=== PATIENT | female | born 1995 | race Caucasian/White ===

== ENCOUNTER 2016-12-24 12:51 | Emergency (ER) | payer OTHER ==
[2016-12-24 13:04] VITALS: RESP 16; TEMP 98.2
[2016-12-24] MEDS ORDERED: LIDOCAINE 2% VISCOUS 15 ML UDCUP PO ONE (13:13)
[2016-12-24] MEDS ORDERED: MAG HYDROX/AL HYDROX/SIMETH 30 ML UDCUP PO ONE (13:13)
[2016-12-24] MEDS ORDERED: FAMOTIDINE 20 MG in NS 100 ML IV ONE (13:13)
--- NOTE | 2016-12-24 13:18 | EDPHY ---
H & P Stated Complaint: n/v and epigastric pain since saturday, Time Seen by Provider: 12/24/16 13:02 HPI/ROS: Chief Complaint: Abdominal pain HPI: 21-year-old female with a past medical history of a hiatal hernia had some vomiting on Saturday. Since that time she has been having epigastric abdominal pain consistent with prior hiatal hernia pain. At worst is 6/10. It is worse when she lays down and worse with eating. Some nausea. No further vomiting. No fevers or chills. No urinary symptoms. No diarrhea. No hematemesis or melena. Last menstrual period was 3 weeks ago. She has never been . Has never had a sexually transmitted disease. ROS: 10 point Review of Systems is negative except as noted in the HPI. PMH: Hiatal hernia, asthma Medications: Singular Allergies: No known drug allergies Social History: No smoking, occasional alcohol, no recreational drug use Family History: Mother has hypertension, father had skin cancer Physical Exam: Gen: Awake, Alert, No Distress HEENT: Nose: no rhinorrhea Eyes: PERRLA, EOMI Mouth: Moist mucosa Neck: Supple, no JVD Chest: nontender, lungs clear to auscultation Heart: S1, S2 normal, no murmur Abd: Soft, mild epigastric tenderness, no Carpenter sign, no lower abdominal tenderness, no guarding Back: no CVA tenderness, no midline tenderness Ext: no edema, non-tender Skin: no rash Neuro: CN II-XII intact, Sensation grossly intact, Strength 5/5 in bilateral upper and lower extremities - Personal History LMP (Females 10-55): IUD In Place Current Tetanus Diphtheria and Acellular Pertussis (TDAP): Yes - Medical/Surgical History Hx Asthma: No Hx Chronic Respiratory Disease: No Hx Diabetes: No Hx Cardiac Disease: No Hx Renal Disease: No Hx Cirrhosis: No Hx Alcoholism: No Hx HIV/AIDS: No Hx Splenectomy or Spleen Trauma: No Other PMH: Hiatal Hernia ? Seasonal allergies - Social History Smoking Status: Never smoked Constitutional: Initial Vital Signs Temperature (C) 36.8 C 12/24/16 13:02 Heart Rate 93 12/24/16 13:02 Respiratory Rate 16 12/24/16 13:02 Blood Pressure 121/71 H 12/24/16 13:02 O2 Sat (%) 98 12/24/16 13:02 O2 Delivery Mode Room Air Allergies/Adverse Reactions: No Known Allergies Allergy (Verified 12/24/16 13:03) Home Medications: Medication Instructions Recorded Andrae 08/09/14 Medical Decision Making ED Course/Re-evaluation: [age] year old female with epigastric pain, mild tenderness, symptoms consistent with hiatal hernia and gastrointestinal reflux disease. She has a soft benign abdomen. Certainly not surgical. Will obtain laboratory evaluations including LFTs and lipase and CBC. Will also check a test. Will treat IV H2 blockers and oral antacids and reassess. Patient is improved after antacid medications. Laboratory investigations are entirely normal. Abdomen is soft and benign. Will discharge with continued over -the-counter antacid medications. Follow up with primary care doctor in 2-3 days. If symptoms continue she may require an ultrasound but she has not have any particular right upper quadrant tenderness at this time is normal liver function. - Data Points Laboratory Results: Laboratory Results 12/24/16 13:24 12/24/16 13:24 12/24/16 12/24/16 12/24/16 13:24 13:24 13:24 WBC 5.52 10^3/uL 10^3/uL (3.80-9.50) RBC 4.37 10^6/uL 10^6/uL (4.18-5.33) Hgb 12.8 g/dL g/dL (12.6-16.3) Hct 35.9 % L % (38.0-47.0) MCV 82.2 fL fL (81.5-99.8) MCH 29.3 pg pg (27.9-34.1) MCHC 35.7 g/dL g/dL (32.4-36.7) RDW 11.7 % % (11.5-15.2) Plt Count 218 10^3/uL 10^3/uL (150-400) MPV 10.3 fL fL (8.7-11.7) Neut % (Auto) 58.4 % % (39.3-74.2) Lymph % (Auto) 31.0 % % (15.0-45.0) [place] % (Auto) 8.3 % % (4.5-13.0) Eos % (Auto) 1.6 % % (0.6-7.6) Baso % (Auto) 0.5 % % (0.3-1.7) Nucleat RBC Rel Count 0.0 % % (0.0-0.2) Absolute Neuts (auto) 3.22 10^3/uL 10^3/uL (1.70-6.50) Absolute Lymphs (auto) 1.71 10^3/uL 10^3/uL (1.00-3.00) Absolute Monos (auto) 0.46 10^3/uL 10^3/uL (0.30-0.80) Absolute Eos (auto) 0.09 10^3/uL 10^3/uL (0.03-0.40) Absolute Basos (auto) 0.03 10^3/uL 10^3/uL (0.02-0.10) Absolute Nucleated RBC 0.00 10^3/uL 10^3/uL (0-0.01) Immature Gran % 0.2 % % (0.0-1.1) Immature Gran # 0.01 10^3/uL 10^3/uL (0.00-0.10) Sodium 140 mEq/L mEq/L (134-144) Potassium 3.6 mEq/L mEq/L (3.5-5.2) Chloride 105 mEq/L mEq/L (97-110) Carbon Dioxide 22 mEq/l mEq/l (22-31) Anion Gap 13 mEq/L mEq/L (8-16) BUN 12 mg/dL mg/dL (7-23) Creatinine 0.6 mg/dL mg/dL (0.6-1.0) Estimated GFR > 60 Glucose 83 mg/dL mg/dL (70-100) Calcium 8.7 mg/dL mg/dL (8.5-10.4) Total Bilirubin 0.6 mg/dL mg/dL (0.1-1.4) Conjugated Bilirubin 0.2 mg/dL mg/dL (0.0-0.5) Unconjugated Bilirubin 0.4 mg/dL mg/dL (0.0-1.1) AST 21 IU/L IU/L (14-46) ALT 34 IU/L IU/L (9-52) Alkaline Phosphatase 69 IU/L IU/L (38-126) Total Protein 6.4 g/dL g/dL (6.3-8.2) Albumin 4.0 g/dL g/dL (3.5-5.0) Lipase 41.0 IU/L IU/L (23-300) Beta HCG, Qual NEGATIVE Medications Given: Discontinued Medications Al Hydroxide/Mg Hydroxide (Maalox Susp) 30 ml PO ONCE ONE Stop: 12/24/16 13:14 Last Admin: 12/24/16 13:30 Dose: 30 ml Famotidine 20 mg/ Sodium (Chloride) 102 mls @ 408 mls/hr IV EDNOW ONE Stop: 12/24/16 13:27 Last Admin: 12/24/16 13:30 Dose: 102 mls Lidocaine (Lidocaine 2% Viscous) 15 ml PO ONCE ONE Stop: 12/24/16 13:14 Last Admin: 12/24/16 13:30 Dose: 15 ml Departure - Departure Disposition: Home, Routine, Self-Care Clinical Impression: GERD (gastroesophageal reflux disease) Condition: Good Instructions: Gastroesophageal Reflux Disease (ED) Additional Instructions: Take [id number] famotidine per label instructions for continued pain. Follow up with primary care physician in 2-3 days for re-evaluation. Return to the emergency depart for increasing pain, nausea, vomiting, fevers, chills, or any other concerns. Referrals: Rika Godinez PA [Primary Care Provider] - As per Instructions
[2016-12-24 13:42] LABS: % IMMATURE GRANULYOCYTES 0.2 % (0.0-1.1); ABSOLUTE IMMATURE GRANULOCYTES 0.01 10^3/uL (0.00-0.10); ADD DIFF? NO; ADD MORPH? NO; ADD SCAN? NO; ATYPICAL LYMPHOCYTE FLAG 10 (0-99); FRAGMENT RBC FLAG 0 (0-99); HEMATOCRIT 35.9 % (38.0-47.0); HEMOGLOBIN 12.8 g/dL (12.6-16.3); LEFT SHIFT FLG 0 (0-99); LIPEMIA HEMOLYSIS FLAG 90 (0-99); MEAN CELL HEMOGLOBIN 29.3 pg (27.9-34.1); MEAN CELL HEMOGLOBIN CONCENTR. 35.7 g/dL (32.4-36.7); MEAN CELL VOLUME 82.2 fL (81.5-99.8); MEAN PLATELET VOLUME 10.3 fL (8.7-11.7); PLATELET CLUMPS FLAG 0 (0-99); PLATELET COUNT 218 10^3/uL (150-400); RED BLOOD CELL COUNT 4.37 10^6/uL (4.18-5.33); RED CELL DISTRIBUTION WIDTH 11.7 % (11.5-15.2)
[2016-12-24 13:56] LABS: ALANINE AMINOTRANSFERASE 34 IU/L (9-52); ALKALINE PHOSPHATASE 69 IU/L (38-126); ANION GAP 13 mEq/L (8-16); ASPARTATE AMINOTRANSFERASE 21 IU/L (14-46); BILIRUBIN,TOTAL 0.6 mg/dL (0.1-1.4); BILIRUBIN-CONJUGATED 0.2 mg/dL (0.0-0.5); BILIRUBIN-UNCONJUGATED 0.4 mg/dL (0.0-1.1); CALCIUM 8.7 mg/dL (8.5-10.4); CARBON DIOXIDE 22 mEq/l (22-31); CHLORIDE 105 mEq/L (97-110); CREATININE 0.6 mg/dL (0.6-1.0); GLOMERULAR FILTRATION RATE > 60; GLUCOSE 83 mg/dL (70-100); POTASSIUM 3.6 mEq/L (3.5-5.2); SODIUM 140 mEq/L (134-144); TOTAL PROTEIN 6.4 g/dL (6.3-8.2)
[2016-12-24 14:27] VITALS: BP 115/69; PULSE 96; O2SAT 97
== END 2016-12-24 14:26 | disposition home or self-care (01) ==
LOC: CED 12:51
DX: K21.9 Gastro-esophageal reflux disease without esophagitis (principal); J45.909 Unspecified asthma, uncomplicated
CPT/HCPCS: 80048-PO; 80076-PO; 83690-PO; 84703-PO; 85025-PO; 96374